=== PATIENT | male | born 1960 | race Caucasian/White ===

== ENCOUNTER 2025-08-23 06:23 | Day surgery (SDC) | payer OTHER ==
[~2025-08-23 06:23] MED LIST: Sodium Chloride 0.9% 10 ML Syringe FLUSH PRN; Sodium Chloride 0.9% 10 ML Syringe FLUSH SCH
[2025-08-23] MEDS: Lactated Ringers 1,000 ML IV SCH (06:45)
[2025-08-23] MEDS ORDERED: Propofol 200 MG/20 ML SDV ONE ×2 (06:49→07:20)
== END 2025-08-23 08:25 | disposition home or self-care (01) ==
LOC: JD.SDS 06:23
PROVIDERS: ATTEND Surgery
DX: Z12.11 Encounter for screening for malignant neoplasm of colon (principal); D12.0 Benign neoplasm of cecum; D12.3 Benign neoplasm of transverse colon; K63.5 Polyp of colon; E03.9 Hypothyroidism, unspecified; F17.210 Nicotine dependence, cigarettes, uncomplicated; Z79.890 Hormone replacement therapy; Z86.0102 Personal history of hyperplastic colon polyps
CPT/HCPCS: 45380; 45384; J2704; J7120; 00811; 88305